=== PATIENT | female | born 1990 | race African-American/Black ===

== ENCOUNTER 2024-09-13 14:37 | Emergency (ER) | payer MEDICAID ==
[~2024-09-13] VITALS: Ht 172.7 cm; Wt 121.0 kg
[2024-09-13 15:00] VITALS: O2SAT 98
[2024-09-13 18:20] LABS: BASOPHILS % 0.5 % (0.0-2.0); EOSINOPHILS % 0.8 % (0.0-5.0); HEMATOCRIT. 31.7 % (36.0-48.0); HEMOGLOBIN. 10.4 g/dL (12.0-16.0); LYMPHOCYTES % 35.1 % (20.0-50.0); MEAN CORPUSCULAR HEMOGLOBIN 27.7 pg (28.0-32.0); MEAN CORPUSCULAR HGB CONC 32.9 g/dL (31.0-37.0); MEAN PLATELET VOLUME 7.8 fl (7.4-10.4); MONOCYTES % 5.3 % (2.0-8.0); NEUTROPHILS % 58.3 % (40.0-76.0); PLATELET 387 x1000/uL (130-400); RED BLOOD CELL COUNT 3.77 mill/uL (4.2-5.4); RED CELL DISTRIBUTION WIDTH 13.4 % (11.6-14.6); WHITE BLOOD COUNT 7.2 x1000/uL (4.5-11.0)
[2024-09-13 18:29] LABS: CHLORIDE 106 mEq/L (98-107); POTASSIUM 3.6 mEq/L (3.5-5.1); SODIUM 139 mEq/L (136-145)
[2024-09-13 18:30] LABS: CALCIUM 8.8 mg/dL (8.7-10.4); CARBON DIOXIDE 26 mEq/L (21-32)
[2024-09-13 18:35] LABS: B-HCG QUANTITATIVE 7 mIU/mL (<3); CREATININE 0.6 mg/dL (0.6-1.0); GLUCOSE 82 mg/dL (70-105); UREA NITROGEN BLOOD 10 mg/dL (9-23)
[2024-09-13] MEDS ORDERED: METHYLERGONOVINE MALEATE 0.2 MG/ML IV ONE (20:45)
[2024-09-13] MEDS ORDERED: METHYLERGONOVINE MALEATE 0.2 MG/ML IM ONE (20:45)
[2024-09-13] MEDS: TRANEXAMIC ACID 1,000MG/10ML IV ONE (22:45)
[2024-09-13] MEDS ORDERED: IOHEXOL-300 100 ML BOTTLE ONE (23:33)
[2024-09-13 23:53] VITALS: BP 157/89; PULSE 87; RESP 18; TEMP 36.9; O2SAT 98
== END 2024-09-13 23:56 | disposition home or self-care (01) ==
LOC: ER 14:37
DX: N93.9 Abnormal uterine and vaginal bleeding, unspecified (principal)
CPT/HCPCS: 99285; 74177; 96374; 76830; 76856; 80048; 84702; 85025; 86850; 86900; 86901; 36415; Q9967; J2210

== ENCOUNTER 2025-02-28 15:11 | Emergency (ER) | payer MEDICAID ==
[~2025-02-28] VITALS: Ht 157.5 cm; Wt 121.0 kg
[2025-02-28 15:47] VITALS: O2SAT 99
[2025-02-28] MEDS: KETOROLAC 15MG/ML VIAL IM ONE (18:00)
[2025-02-28] MEDS: LIDOCAINE 5% PATCH TOP SCH (18:00)
[2025-02-28 19:22] LABS: CLARITY URINE CLEAR (CLEAR); COLOR URINE YELLOW (YELLOW); GLUCOSE URINE NEGATIVE (NEGATIVE); KETONES URINE NEGATIVE (NEGATIVE); LEUKOCYTE ESTERASE URINE TRACE (NEGATIVE); NITRITE URINE POSITIVE (NEGATIVE); OCCULT BLOOD URINE NEGATIVE (NEGATIVE); PH URINE 6.5 (4.5-8.0); PROTEIN URINE NEGATIVE (NEGATIVE); SPECIFIC GRAVITY URINE 1.026 (1.005-1.030); UROBILINOGEN URINE 1.0 E.U./dL (0.2-1.0)
[2025-02-28 20:01] LABS: BACTERIA URINE 3+; RBC URINE NONE SEEN /hpf (0-2)
[2025-02-28] MEDS ORDERED: NITR100C MT (20:05)
[2025-02-28] MEDS ORDERED: IBUP-2028 MT (20:05)
[2025-02-28 20:19] VITALS: BP 132/84; PULSE 84; RESP 16; TEMP 37.1; O2SAT 100
== END 2025-02-28 20:25 | disposition home or self-care (01) ==
LOC: ER 15:11
DX: M54.9 Dorsalgia, unspecified (principal); M25.552 Pain in left hip; J45.909 Unspecified asthma, uncomplicated; Y04.0XXA Assault by unarmed brawl or fight, initial encounter; Y93.89 Activity, other specified; Y92.89 Other specified places as the place of occurrence of the external cause; Y99.8 Other external cause status
CPT/HCPCS: 81003; 81025; 73502; 96372; 99284; J1885; Z7610